=== PATIENT | male | born 1980 | race African-American/Black ===

== ENCOUNTER → 2019-02-16 | Emergency (ER) | payer OTHER ==
[~2019-02-16] VITALS: Ht 167.6 cm; Wt 65.8 kg
[~2019-02-16] MED LIST: ANUSOL-HC30 GM RC; FUROSEMIDE40 MG ORAL; LABETALOL HCL200 MG ORAL; MIRALAX17 G2 ORAL; NIFEDIPINE ER60 M2 ORAL; PRINIVIL10 MG ORAL; RENVELA0.8 GM ORAL
[2019-02-16 15:16] VITALS: BP 181/112
--- NOTE | 2019-02-16 15:16 | NUR ---
ED Nurse Note: Patient walked in to Ed from home c/o hemorrhoids since Feb 09. Reports 8/10 pain during defecation and noticed scant of blood in his stool. Dialysis days MWF, his last dialysis was yesterday. Noted with left upper arm fistula. BP is 181/112. No SOB.
--- NOTE | 2019-02-16 15:40 | NUR ---
ED Nurse Note: ERMD at bedside.
--- NOTE | 2019-02-16 15:48 | Emergency Room Report ---
History of Present Illness General Chief Complaint: Male Urogenital Problems Source: Patient Present Illness HPI 38-year-old male presents with blood-streaked stool x1 month, patient with a history of hemorrhoids,, patient endorses constipation aggravates the hemorrhoids, alleviated with out constipation severity is moderate, intermittent no fevers no chills, patient presents for evaluation Allergies: Coded Allergies: No Known Allergies (Unverified , 02/16/19) Patient History Past Medical History: see triage record Reviewed Nursing Documentation: PMH: Agreed; PSxH: Agreed Nursing Documentation-PMH Hx Hypertension: Yes Review of Systems All Other Systems: negative except mentioned in HPI Physical Exam Vital Signs Date Time Temp Pulse Resp B/P (MAP) Pulse Ox O2 Delivery O2 Flow Rate FiO2 02/16/19 15:08 98.2 85 16 197/126 (149) 97 Room Air General Appearance: well appearing, no apparent distress Head: normocephalic, atraumatic Eyes: bilateral eye PERRL, bilateral eye EOMI ENT: hearing grossly normal, normal voice Neck: full range of motion, supple Respiratory: no respiratory distress, speaking full sentences Rectal: other - [facility] [employer] Leighann RN, patient with two large hemorrhoids Musculoskeletal: gait/station normal Neurologic: alert, normal gait Psychiatric: mood/affect normal Skin: no rash Medical Decision Making Diagnostic Impression: Primary Impression: Hemorrhoids Qualified Codes: K64.2 - Third degree hemorrhoids ER Course 38-year-old male presents with rectal pain, patient home to have the hemorrhoids , Referred patient to surgery Disposition home with return precautions Last Vital Signs Date Time Temp Pulse Resp B/P (MAP) Pulse Ox O2 Delivery O2 Flow Rate FiO2 02/16/19 15:16 98.2 78 16 181/112 97 Room Air Disposition: HOME, SELF-CARE Condition: Stable Scripts Polyethylene Glycol 3350* (MIRALAX*) 17 Gm Powd.pack 17 GM ORAL DAILY, #60 PACKET Prov: Jasvir Mosher MD 02/16/19 Hydrocortisone Hc 2.5% Cream (ANUSOL-HC 2.5% CREAM) Y Cr 30 GM RC DAILY, #1 GM Prov: Jasvir Mosher MD 02/16/19 Referrals: Roque Dawkins Patient Instructions: Hemorrhoids, [id number], How to Take a Sitz Bath Additional Instructions: The patient was provided with discharge instructions, notified to follow-up with a primary care doctor and or specialist in the next 24-48 hours, and to return to the ED if they have worsening of their symptoms. Please note that this report is being documented using [employer] technology. This can lead to erroneous entry secondary to incorrect interpretation by the dictating instrument. PLEASE FOLLOW-UP WITH SURGERY FOR POSSIBLE REMOVAL OF HEMORRHOIDS Jasvir Mosher MD Feb 16, 2019 15:48
[2019-02-16 15:58] VITALS: BP 170/99
--- NOTE | 2019-02-16 15:58 | NUR ---
ED Nurse Note: Pt cleared by ERMD for discharge. DC instructions/prescription was given and explained to pt and verbalized understanding of teachings. All medical deviecs such as ID band removed. Pt is AAO x4, ambulatory and left with all personal belongings.
== END | disposition home or self-care (01) ==
LOC: EMR 16:32
DX: K64.2 Third degree hemorrhoids (principal); I10 Essential (primary) hypertension
CPT/HCPCS: 99282